=== PATIENT | female | born 1990 | race Caucasian/White ===

== ENCOUNTER 2019-03-14 15:17 | Outpatient (CLI) | payer BC ==
[2019-03-14 16:41] LABS: ADD MAN DIFF? NO
[2019-03-14 16:43] LABS: WHITE BLOOD COUNT 8.6 10^3/ul (4.8-10.8)
[2019-03-14 16:43] LABS: BASOPHILS % 0.2 % (0.0-2.0); EOSINOPHILS % 0.3 % (0.0-7.0); HEMATOCRIT 32.9 % (37.0-47.0); HEMOGLOBIN 11.4 g/dl (12.0-16.0); LYMPHOCYTES # 1.2 10^3/ul (0.8-2.9); MEAN CORPUSCULAR HEMOGLOBIN 32.2 pg (29.0-33.0); MEAN CORPUSCULAR HGB CONC 34.7 g/dl (32.0-37.0); MEAN CORPUSCULAR VOLUME 92.9 fl (82.0-101.0); MEAN PLATELET VOLUME 11.4 fl (7.4-10.4); MONOCYTE # 0.9 10^3/ul (0.3-0.9); MONOCYTES % 10.2 % (0.0-11.0); NEUTROPHIL # 6.5 10^3/ul (1.6-7.5); NEUTROPHILS % 75.1 % (39.0-77.0); PLATELET COUNT 154 10^3/UL (140-415); RED BLOOD COUNT 3.54 10^6/ul (4.20-5.40); RED CELL DISTRIBUTION WIDTH 13.4 % (11.5-14.5)
[2019-03-14 16:56] LABS: ADD UMIC NO; UR ASCORBIC ACID NEGATIVE (NEGATIVE); UR BILIRUBIN (Dip) NEGATIVE (NEGATIVE); UR BLOOD (Dip) NEGATIVE (NEGATIVE); UR CLARITY CLEAR (CLEAR); UR COLOR STRAW (YELLOW); UR GLUCOSE (Dip) NEGATIVE (NEGATIVE); UR KETONES (Dip) NEGATIVE (NEGATIVE); UR LEUKOCYTE ESTERASE (Dip) NEGATIVE Leu/ul (NEGATIVE); UR NITRITE (Dip) NEGATIVE (NEGATIVE); UR SPECIFIC GRAVITY (Dip) 1.003 (1.003-1.030); UR TOTAL PROTEIN (Dip) NEGATIVE (NEGATIVE); UR UROBILINOGEN (Dip) NEGATIVE (NEGATIVE)
[2019-03-14 17:31] LABS: RUPTURE FETAL MEMBRANES NEGATIVE (NEGATIVE)
== END 2019-03-14 17:58 | disposition home or self-care (01) ==
LOC: OBT 15:17 → L-D 15:17 → OBT 17:58
DX: O42.92 Full-term premature rupture of membranes, unspecified as to length of time between rupture and onset of labor (principal); Z3A.37 37 weeks gestation of pregnancy
CPT/HCPCS: 76815; 76818; 81003; 84112; 85025; 87086

== ENCOUNTER 2019-04-04 19:09 | Inpatient (IN) | payer BC ==
[2019-04-04] MEDS: LACTATED RINGER'S 1,000 ML IV ×3 (20:25→22:58)
[2019-04-04] MEDS ORDERED: MINERAL OIL LIGHT 10 ML VIAL TOP (20:30)
[2019-04-04] MEDS ORDERED: IBUPROFEN 600 MG TAB PO (20:30)
[2019-04-04] MEDS ORDERED: MISOPROSTOL 200 MCG TAB PR (20:30)
[2019-04-04] MEDS ORDERED: METHYLERGONOVINE 0.2 MG INJ IM (20:30)
[2019-04-04] MEDS ORDERED: OXYTOCIN 30 UNITS/LR 500 ML IV ×2 (20:30)
[2019-04-04] MEDS ORDERED: LIDOCAINE 1% (MPF) 30 ML INJ INJ (20:30)
[2019-04-04] MEDS ORDERED: CARBOPROST 250 MCG INJ IM (20:30)
[2019-04-04 20:36] LABS: ADD MAN DIFF? NO
[2019-04-04 20:40] LABS: BASOPHILS % 0.5 % (0.0-2.0); EOSINOPHILS # 0.1 10^3/ul (0.0-0.5); EOSINOPHILS % 0.6 % (0.0-7.0); HEMATOCRIT 36.5 % (37.0-47.0); HEMOGLOBIN 12.6 g/dl (12.0-16.0); LYMPHOCYTES # 2.2 10^3/ul (0.8-2.9); LYMPHOCYTES % 24.3 % (15.0-51.0); MEAN CORPUSCULAR HEMOGLOBIN 32.4 pg (29.0-33.0); MEAN CORPUSCULAR HGB CONC 34.5 g/dl (32.0-37.0); MEAN CORPUSCULAR VOLUME 93.8 fl (82.0-101.0); MONOCYTES % 11.6 % (0.0-11.0); NEUTROPHIL # 5.6 10^3/ul (1.6-7.5); NEUTROPHILS % 62.7 % (39.0-77.0); PLATELET COUNT 149 10^3/UL (140-415); RED BLOOD COUNT 3.89 10^6/ul (4.20-5.40); RED CELL DISTRIBUTION WIDTH 13.4 % (11.5-14.5)
[2019-04-04 20:40] LABS: WHITE BLOOD COUNT 8.9 10^3/ul (4.8-10.8)
[2019-04-04 21:00] LABS: INR 0.85; PROTIME 11.7 Sec (11.9-14.9); PT RATIO 0.9
[2019-04-04 21:01] LABS: PARTIAL THROMBOPLASTIN TIME 23.5 Sec (23.0-35.0)
[2019-04-04] MEDS: BUTORPHANOL 2 MG INJ IV (21:04)
[2019-04-04 21:27] LABS: HEPATITIS B SURFACE ANTIGEN NEGATIVE (NEGATIVE)
[2019-04-04] MEDS: OXYTOCIN 30 UNITS/LR 500 ML IV (22:00)
[2019-04-04] MEDS ORDERED: FENTAnyl 50 MCG/ML VIAL (23:17)
[2019-04-04] MEDS ORDERED: FENTAnyl 2MCG/ML-ROPIV 0.2% 100 ML (23:17)
[2019-04-05] MEDS ORDERED: NALOXONE (0.4 MG/ML) INJ IV (01:00)
[2019-04-05] MEDS: FENTAnyl 2MCG/ML-ROPIV 0.2% 100 ML BAG EPI ×2 (01:34→06:18)
[2019-04-05] MEDS: LACTATED RINGER'S 1,000 ML IV ×2 (04:08→09:56)
[2019-04-05] MEDS ORDERED: ONDANSETRON 4 MG INJ IV ×2 (08:00→11:00)
[2019-04-05] MEDS: OXYTOCIN 30 UNITS/LR 500 ML IV ×2 (10:37→10:38)
[2019-04-05] MEDS: LACTATED RINGER'S 1,000 ML IV* ×2 (10:37→18:37)
[2019-04-05] MEDS ORDERED: BENZOCAINE 20% 56 ML SPRAY TOP (11:00)
[2019-04-05] MEDS ORDERED: OXYTOCIN 30 UNITS/LR 500 ML IV (11:00)
[2019-04-05] MEDS ORDERED: METHYLERGONOVINE 0.2 MG TAB PO (11:00)
[2019-04-05] MEDS ORDERED: METHYLERGONOVINE 0.2 MG INJ IM (11:00)
[2019-04-05] MEDS ORDERED: NA PHOSPHATE/BIPHOS 133 ML ENEMA PR (11:00)
[2019-04-05] MEDS ORDERED: MISOPROSTOL 200 MCG TAB PR (11:00)
[2019-04-05] MEDS ORDERED: MAGNESIUM HYDROXIDE 30ML CUP PO (11:00)
[2019-04-05] MEDS ORDERED: ZOLPIDEM 5 MG TAB PO (11:00)
[2019-04-05] MEDS ORDERED: DIPHENHYDRAMINE 25 MG CAP PO (11:00)
[2019-04-05] MEDS ORDERED: CARBOPROST 250 MCG INJ IM (11:00)
[2019-04-05] MEDS: IBUPROFEN 800 MG TAB PO ×2 (11:39→20:45)
[2019-04-05] MEDS: ACETAMINOPHEN 500 MG TAB PO (11:57)
[2019-04-05] MEDS: LANOLIN HPA 1 PKT TOP (14:31)
[2019-04-05] MEDS: HYDROCODONE/APAP (5/325) TAB PO (14:31)
[2019-04-05] MEDS: WITCH HAZEL/GLYCERIN PAD PR (14:31)
[2019-04-05 20:56] LABS: RAPID PLASMA REAGIN NONREACTIVE (NR)
[2019-04-05] MEDS: SENNA/DOCUSATE NA (8.6MG/50MG) TAB PO (21:37)
[2019-04-06] MEDS: IBUPROFEN 800 MG TAB PO ×2 (06:01→23:47)
[2019-04-06 07:46] LABS: ADD MAN DIFF? NO
[2019-04-06 07:56] LABS: WHITE BLOOD COUNT 12.7 10^3/ul (4.8-10.8)
[2019-04-06 07:56] LABS: BASOPHIL # 0.1 10^3/ul (0.0-0.1); BASOPHILS % 0.4 % (0.0-2.0); EOSINOPHILS # 0.1 10^3/ul (0.0-0.5); EOSINOPHILS % 0.8 % (0.0-7.0); HEMATOCRIT 36.1 % (37.0-47.0); LYMPHOCYTES # 2.1 10^3/ul (0.8-2.9); LYMPHOCYTES % 16.3 % (15.0-51.0); MEAN CORPUSCULAR HEMOGLOBIN 32.3 pg (29.0-33.0); MEAN CORPUSCULAR HGB CONC 33.2 g/dl (32.0-37.0); MEAN CORPUSCULAR VOLUME 97.3 fl (82.0-101.0); MONOCYTE # 1.2 10^3/ul (0.3-0.9); MONOCYTES % 9.4 % (0.0-11.0); NEUTROPHIL # 9.2 10^3/ul (1.6-7.5); NEUTROPHILS % 72.6 % (39.0-77.0); PLATELET COUNT 128 10^3/UL (140-415); RED BLOOD COUNT 3.71 10^6/ul (4.20-5.40); RED CELL DISTRIBUTION WIDTH 13.5 % (11.5-14.5)
[2019-04-06] MEDS: SENNA/DOCUSATE NA (8.6MG/50MG) TAB PO ×2 (09:56→21:00)
[2019-04-06] MEDS: HYDROCODONE/APAP (5/325) TAB PO ×2 (10:28→19:55)
[2019-04-06] MEDS: MAGNESIUM HYDROXIDE 30ML CUP PO (18:08)
[2019-04-06] MEDS: BISACODYL 10 MG SUPP PR (18:08)
[2019-04-06] MEDS: LACTATED RINGER'S 1,000 ML IV* ×3 (22:23→22:24)
[2019-04-07] MEDS: LACTATED RINGER'S 1,000 ML IV* ×2 (02:37→10:37)
[2019-04-07] MEDS: HYDROCODONE/APAP (5/325) TAB PO (05:00)
[2019-04-07] MEDS: MAGNESIUM HYDROXIDE 30ML CUP PO (05:53)
[2019-04-07] MEDS: BISACODYL 10 MG SUPP PR (05:54)
[2019-04-07] MEDS: SENNA/DOCUSATE NA (8.6MG/50MG) TAB PO (09:00)
[2019-04-07] MEDS: VARICELLA VACCINE LIVE/PF 1,350 UNIT/0.5 ML ML SC* (09:00)
[2019-04-07] MEDS: DIPHTH/TET/ACEL PERTUSS (ADULT) 0.5 ML VIAL IM* (09:00)
[2019-04-07] MEDS: MEASLES,MUMPS,RUBELLA VACCINE INJ SC* (09:00)
[2019-04-07] MEDS: IBUPROFEN 800 MG TAB PO (11:49)
== END 2019-04-07 13:50 | disposition home or self-care (01) | DRG 807 ==
LOC: OBT 19:09 → PP1 04-05 12:23 → L-D 19:09 → OBT 19:48 → L-D 19:49
PROVIDERS: Obstetrics & Gynecology
PROC: 10E0XZZ Delivery of Products of Conception, External Approach (ICD-10-PCS; principal; 2019-04-05)
PROC: 0KQM0ZZ Repair Perineum Muscle, Open Approach (ICD-10-PCS; 2019-04-05)
DX: O70.1 Second degree perineal laceration during delivery (principal); Z37.0 Single live birth; Z3A.39 39 weeks gestation of pregnancy
CPT/HCPCS: 62322; 76815; 85025; 85610; 85730; 86592; 86850; 86900; 86901; 87070; 87340; 90716